=== PATIENT | female | born 1955 | race Caucasian/White ===

== ENCOUNTER 2018-03-04 10:16 | Emergency (ER) | payer OTHER ==
[2018-03-04] MEDS: HYDROmorphONE 0.5 MG/0.5 ML SYG IM (10:44)
[2018-03-04] MEDS: LIDOCAINE 1% (MPF) 5 ML VIAL INJ (10:44)
[2018-03-04] MEDS: ONDANSETRON (ODT) 4 MG TAB ODT (10:44)
[2018-03-04] MEDS: NICARDipine HCL 30 MG CAPSULE PO (15:16)
== END 2018-03-04 16:45 | disposition home or self-care (01) ==
LOC: E/R 10:16
DX: M25.462 Effusion, left knee (principal); R40.2252 Coma scale, best verbal response, oriented, at arrival to emergency department; R40.2362 Coma scale, best motor response, obeys commands, at arrival to emergency department; R40.2142 Coma scale, eyes open, spontaneous, at arrival to emergency department
CPT/HCPCS: 20610; 73562; 96372; 99284-25